=== PATIENT | female | born 2005 | race Caucasian/White ===

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

== ENCOUNTER 2023-09-26 07:34 | Emergency (ER) | payer MEDICAID, OTHER ==
[~2023-09-26] VITALS: Ht 157.5 cm; Wt 86.2 kg
[2023-09-26 07:46] VITALS: BP 117/80; PULSE 84; RESP 18; TEMP 97.3; O2SAT 100
[2023-09-26] MEDS ORDERED: IBUP-2213 PO (08:02)
[2023-09-26] MEDS ORDERED: ONDA8TAB87 PO (08:02)
[2023-09-26] MEDS ORDERED: LOPE-289 PO (08:02)
[2023-09-26] MEDS: KETOROLAC 60 MG/2 ML VIAL IM ONE (08:11)
[2023-09-26] MEDS: ONDANSETRON 4 MG ODT PO ONE (08:11)
[2023-09-26 08:50] VITALS: BP 117/80; PULSE 84; RESP 18; TEMP 36.28068; O2SAT 100
== END 2023-09-26 08:50 | disposition home or self-care (01) ==
LOC: MED 07:34
DX: R10.13 Epigastric pain (principal); R11.2 Nausea with vomiting, unspecified; R19.7 Diarrhea, unspecified; Z86.79 Personal history of other diseases of the circulatory system; Z79.1 Long term (current) use of non-steroidal anti-inflammatories (NSAID); Z79.899 Other long term (current) drug therapy
CPT/HCPCS: 81002; 81025; 96372; 99283; J1885; Q0162